=== PATIENT | male | born 1995 | race Hispanic/Latino ===

== ENCOUNTER 2022-06-08 04:25 | Emergency (ER) | payer SELFPAY ==
[2022-06-08] MEDS ORDERED: predniSONE 20 MG TAB ONE (04:51)
== END 2022-06-08 05:36 | disposition home or self-care (01) ==
LOC: CSHERS 04:25
DX: J45.901 Unspecified asthma with (acute) exacerbation (principal); E78.5 Hyperlipidemia, unspecified; E78.00 Pure hypercholesterolemia, unspecified; F17.210 Nicotine dependence, cigarettes, uncomplicated
CPT/HCPCS: 94640; 94760; J7512; J7620